=== PATIENT | male | born 1970 | race Caucasian/White ===

== ENCOUNTER 2020-10-07 19:30 | Emergency (ER) | payer OTHER ==
[2020-10-07 19:46] VITALS: BP 140/90; PULSE 88; TEMP 99; BMI 28.6
== END 2020-10-07 20:22 | disposition home or self-care (01) ==
LOC: FER 19:30
PROC: 2W3MX1Z Immobilization of Left Lower Extremity using Splint (ICD-10-PCS; principal; 2020-10-07)
DX: S92.352A Displaced fracture of fifth metatarsal bone, left foot, initial encounter for closed fracture (principal)
CPT/HCPCS: 73610-TC-LT-FY; 73630-TC-LT; 99283-25

== ENCOUNTER 2021-02-20 18:17 | Emergency (ER) | payer SELFPAY ==
[2021-02-20 18:25] VITALS: BP 155/88; PULSE 83; TEMP 98.2; BMI 28.5
== END 2021-02-20 19:04 | disposition home or self-care (01) ==
LOC: FER 18:17
CPT/HCPCS: 73630-TC-RT-FY; 99285-25